=== PATIENT | female | born 1960 | race Caucasian/White ===

== ENCOUNTER 2024-02-18 10:04 | Outpatient (REF) | payer OTHER, SELFPAY ==
[2024-02-18 12:30] LABS: MANUAL DIFF FLAG NO
[2024-02-18 12:32] LABS: Basophils Percent Auto 0.5 % (0-2); Eosinophils Absolute Auto 0.1 X10*3/uL (0.0-0.4); Eosinophils Percent Auto 0.8 % (0-4); Hematocrit 34.8 % (37.0-47.0); Hemoglobin 12.3 g/dl (12.0-16.0); Imm Gran Abs Auto 0.02 X10*3/uL (0.00-0.03); Imm Gran Pct Auto 0.3 % (0.0-0.4); Lymphocytes Absolute Auto 2.1 X10*3/uL (1.2-4.9); Lymphocytes Percent Auto 33.5 % (20-40); Mean Corpuscular HGB Conc 35.3 g/dl (31.0-35.0); Mean Corpuscular Hemoglobin 32.5 pg (27.0-33.0); Mean Corpuscular Volume 91.8 fL (80.0-98.0); Mean Platelet Volume 9.1 fL (9.4-12.3); Monocytes Absolute Auto 0.5 X10*3/uL (0.1-1.2); Monocytes Percent Auto 7.4 % (2-11); Neutrophils Absolute Auto 3.7 x10*3/uL (2.0-8.3); Neutrophils Percent Auto 57.5 % (45-73); Platelet Count 248 X10*3/uL (160-400); Red Blood Count 3.79 X10*6/uL (4.20-5.50); Red Cell Distribution Width 13.9 % (11.0-16.0); White Blood Count 6.4 X10*3/uL (4.8-10.8)
[2024-02-18 12:52] LABS: Estimated Average Glucose 103 mg/dL; Hemoglobin A1c % 5.2 % (<6.0)
[2024-02-18 13:06] LABS: Erythrocyte Sedimentation Rate 8 MM/HR (0-20)
[2024-02-18 13:26] LABS: Alanine Aminotransferase 21 U/L (0-31); Albumin Level 4.4 g/dL (3.5-5.0); Alkaline Phosphatase 59 U/L (39-117); Anion Gap 13 (12-20); Aspartate Amino Transferase 21 U/L (5-31); Bilirubin Total 0.5 mg/dL (0.0-1.0); Blood Urea Nitrogen 16 mg/dL (9-16); Calcium 9.9 mg/dL (8.4-10.2); Carbon Dioxide 24 mmol/L (22-29); Chloride 108 mmol/L (96-108); Estimated Glomerular Filt Rate > 60; Glucose Random 90 mg/dL (60-115); Magnesium 2.1 mg/dL (1.6-2.6); Potassium 3.8 mmol/L (3.3-5.1); Sodium 141 mmol/L (135-145); Total Protein 7.1 g/dL (6.5-8.0)
[2024-02-18 13:27] LABS: Rheumatoid Factor < 13.0 IU/mL (<15.0)
[2024-02-18 13:42] LABS: Ferritin 123 ng/mL (10-250); TSH reflex Free T4 1.48 uIU/mL (0.32-4.0)
[2024-02-18 14:03] LABS: Folate > 20.0 ng/mL (> or = 4.0); Vitamin B12 953 pg/mL (200-900)
[2024-02-19 11:04] LABS: CRP High Sensitivity 1.2 mg/L; Ceruloplasmin 32 mg/dL (14-48)
[2024-02-19 16:53] LABS: Homocysteine 8.4 umol/L (<10.4)
[2024-02-22 13:24] LABS: Nicotinamide <20 ng/mL (see note); Vit B3 - Nicotinic Acid <20 ng/mL (see note)
[2024-02-23 00:24] LABS: Zinc 56 mcg/dL (60-130)
[2024-02-23 12:59] LABS: Methylmalonic Acid 99 nmol/L (69-390)
[2024-02-23 13:43] LABS: Vitamin D 25-OH, D2 14 ng/mL; Vitamin D 25-OH, D3 25 ng/mL; Vitamin D 25-OH, Total 39 ng/mL (30-100)
[2024-02-23 14:44] LABS: Vitamin B6 26.4 ng/mL (2.1-21.7)
[2024-02-23 18:39] LABS: Vitamin A 71 mcg/dL (38-98)
[2024-02-23 18:43] LABS: Alpha-Tocopherol 16.1 mg/L (5.7-19.9); Beta-Gamma Tocopherol 1.1 mg/L (<=4.3)
[2024-02-24 12:28] LABS: Vitamin C 0.6 mg/dL (0.3-2.7)
[2024-02-24 20:48] LABS: Vitamin K1 322 pg/mL (130-1500)
[2024-02-25 11:33] LABS: Vitamin B1 8 nmol/L (8-30)
[2024-02-26 14:44] LABS: Vitamin B5 (Pantothenic Acid) 114 ng/mL (<275)
[2024-02-29 15:23] LABS: Anti Nuclear Antibody Screen POSITIVE (NEGATIVE)
[2024-02-29 15:28] LABS: Anti Nuclear Antibody Pattern Nuclear, Speckled
== END 2024-02-18 10:05 | disposition home or self-care (01) ==
LOC: HO.LAB 10:04
PROVIDERS: PCP Nurse Practitioner Family; Visit Provider Nurse Practitioner Family
DX: D64.9 Anemia, unspecified (principal); E55.9 Vitamin D deficiency, unspecified; R25.2 Cramp and spasm; R53.83 Other fatigue; M54.2 Cervicalgia; R20.2 Paresthesia of skin; R20.0 Anesthesia of skin; G43.909 Migraine, unspecified, not intractable, without status migrainosus
CPT/HCPCS: 36415; 80053; 82180; 82306; 82390; 82550; 82607; 82728; 82746; 83036; 83090; 83735; 83921; 84207; 84425; 84443; 84446; 84590; 84591; 84597; 84630; 85025; 85652; 86038; 86039; 86141; 86431

== ENCOUNTER 2024-02-18 10:04 | Outpatient (AMB) | payer OTHER, SELFPAY ==
--- NOTE | 2024-02-18 10:07 | MHC.OFFVIS ---
Vital Signs 02/18/24 10:08 Height 5 ft 1 in Weight 122 lb 6 oz BMI 23.1 BP 110/80 Blood Pressure Location Rt brachial Position Sitting Respiration 16 Pulse 77 Pulse Source Pulse Oximeter Pulse Oximetry (%) 98 Oxygen Delivery Method Room Air Intake Visit Reasons: ENP-Headaches/Migraines-CONF Intake Note: Pt presents for new pt evaluation for migraines. [employer] Required: No Allergies Sulfa (Sulfonamide Antibiotics) Allergy (Severe, Verified 02/18/24 10:07) Swelling sulfamethizole Allergy (Severe, Verified 02/18/24 10:07) Angioedema iron Allergy (Unknown, Verified 02/18/24 10:07) Unknown nitrofurantoin [From Macrobid] Allergy (Unknown, Verified 02/18/24 10:07) Unknown Medication List - Last Reconciled 02/18/24 by COLUMBA Bunn magnesium oxide 400 mg PO BEDTIME 30 days riboflavin (vitamin B2) 400 mg PO DAILY 30 days HPI Comments Details: 63-yr-old female presents for new pt evaluation of headache and LLE numbness/paresthesias. She is most concerned w/ he rLLE s/s. Pt previously was seen by Dr Lozano for headaches- at our previous office- [facility] Pt reports she is prone to headache and migraine. Last January, she woke up one day with severe right sided migraine. The headache lasted 2 days. When the migraine ended, she felt developed left side numbness from head to toe) which lasted until the end of the day, but the LLE knee through feet numbness persisted. She states since this episode, she may have intermittent left mouth or LUE numbness/tingling. However, she is most concerned with the constant left lower leg symptoms- constant pins and needles, when worse it feels like pins and needles, squeezing calf, numbness, and heaviness sensation. When the LLE symptoms are worse, it feels like it travels up the left side of her body and her leg and whole body feels weak. When she has a stabbing right frontal pain, it can trigger entire left sided numbness and tingling. Laying down does not help. She can feel the ground when she is walking. Since last January, She had brain MRI- states normal. MRI lumbar- showed a bulged disc, and was referred to [facility]. At [facility], states she had a LUE EMG/NCS in November 2023- states normal. 06/2024, Brain MRI w/o, IMPRESSION: Minimal nonspecific white matter T2 hyperintensities probably sequela of chronic microangiopathy. No acute/subacute infarct, hemorrhage, or other acute intracranial abnormality. 06/2024, Lumbar MRI, IMPRESSION: Mild degenerative changes of the lumbar spine as described without high-grade spinal canal or foraminal stenosis. PMH and ROS are notable for: Anemia ?Arthritis.? Joint pain, neck pain, back pain. ??Blurry vision, dryness, eye pain ?Depression ? And anxiety. ?GERD. ? Sore throat.? Sinus problems.? Hoarseness. ?Fatigue.? Previous HST was normal. ?Talks, cries, writes in her sleep. ?Tremor:? times the past 15 years.? Either enhance her whole-body.? With rest or with action. ? Other people notice it. ??Difficulty walking.? Weakness.? Numbness and tingling. ??Dizziness. ??Cramps and foot posturing at rest. Family history of migraine or other headache disorder: brother- migraines. son- had AVM. Headache questionnaire:? Typical headache characteristics: Prodrome symptoms: Back of eyes will hurt or right sided stabbing pain. Aura: May see floaters- w/wo headaches Pain intensity: mild - severe Location, quality, characteristics: Usually bilateral R > L retroorbital, right frontal, temporal headache pressure. Associated symptoms: photophobia- she is overall more photophobic, osmophobia- noticing this more, allodynia, nausea, when severe, vomiting, not right in space dizziness- floating/or like she is on a boat but not, lightheadedness, activity intolerance, swollen/red eyes. In the past, she had a severe migraine w/ Left facial droop and tingling which lasted 3 weeks. Postdrome: none Triggers: No known triggers Time of day: In the middle of the night or wakes up with the headache. But can have headaches anytime. Duration and Frequency: In the past month, has had 2 headache days per week. How does headache impact your life? Tries not to miss work. Cannot work or do daily activities during severe migraine. Family history of migraine or other headache disorder: brother- migraines. son- had AVM. Current acute medication use/interventions: Sumatriptan 100mg- causes her to vomit after her 1st dose, may need to repeat dose. Can take 3 hrs or more to work. Ibuprofen or Tylenol. Current preventative medication use: None Non-pharmacological interventions: Rest PFSH Surgical History H/O tubal ligation Hx of appendectomy H/O bilateral salpingo-oophorectomy Family History Mother Breast CA Social History Alcohol intake: current Patient Tobacco Use Status: Former Tobacco user Substance Use Type: Marijuana Physical Exam Vital Signs: Last Vital Signs Pulse 77 02/18/24 10:08 Resp 16 02/18/24 10:08 BP 110/80 02/18/24 10:08 Pulse Ox 98 02/18/24 10:08 Oxygen Delivery Method Room Air 02/18/24 10:08 BMI result Body Mass Index 23.1 Const Orientation/consciousness: patient oriented x3 Resp Effort & Inspection: normal respiratory effort and able to speak in complete sentences Neuro Other: No palpable scalp tenderness. Bilateral eye flutter w/ eyes closed. Bilateral posterior cervical tightness. Cervical ROM: full Left Spurling: elicits non-radiating tenderness in left paraspinal muscles Right Spurling: normal. BLE MS 5/5, light touch and vibration sensation intact, sharp sensation- hyperesthesia. General: patient oriented x3 Cranial nerves: Yes CN's II-XII intact bilaterally Cognition (Neuro): normal cognition Gait exam (Neuro): Normal gait present Motor exam (neuro): 5/5 motor strength present throughout Deep tendon reflexes (DTR's): Right triceps reflex intensity grade: 2+, Left triceps reflex intensity grade: 2+, Rt Biceps (C5, C6): 2+, Left biceps reflex intensity grade: 2+, Right brachioradialis reflex intensity grade: 2+, Left brachioradialis reflex intensity grade: 2+, Right patellar reflex intensity grade: 2+ and Left patellar reflex intensity grade: 2+ Coordination: [id number] test normal Pupils: Normal pupillary reactivity/response: bilateral Psych Appearance: grossly normal Mental Status: mental status grossly normal Speech and movement: Normal speech and movement present Affect: normal affect Attitude: cooperative Thought process: Normal thought process present Results Reviewed Results Reviewed: 06/25/2024, MRI Lumbar Spine W/O Contrast [facility] VISIT NUMBER :[id number] Patient Name: Carmita Muñiz Date of : 1960 Date of Exam: 06-25-2023 Referring Physician: Florencia Whitney [facility] and [place] [id number] Exam: MR Lumbar Spine (C-) CPT 86092 Room Description: [facility] 3T INDICATION: Patient experienced a headache in January and this was followed by cramping/tightness and weakness on the left side of patient's body. History of migraines. TECHNIQUE: Multiplanar multisequence MRI of the lumbar spine was performed without IV contrast. COMPARISON: No prior FINDINGS: There is minimal dextrocurvature of the lumbar spine centered at L3. Minimal retrolisthesis of L2 on L3 and minimal anterolisthesis of L4 on L5 is noted. The lumbar spine alignment is otherwise preserved. The vertebral body heights are preserved. The bone marrow signal is unremarkable. The conus terminates at L1 and has normal signal and configuration. The paraspinal soft tissues are unremarkable. There is a well-circumscribed T2 hyperintense lesion in the visualized right hepatic lobe measuring 7 x 8 mm probably a benign cysts. The retroperitoneal soft tissues are unremarkable. At T12-L1, there is no spinal canal or foraminal stenosis. The disc is normal. At L1-L2, there is no spinal canal or foraminal stenosis. The disc is normal. At L2-L3, there is a mild disc bulge and ligamentum flavum thickening resulting in mild right and no significant left foraminal stenosis. There is no canal stenosis. At L3-L4, there is a minimal disc bulge resulting in mild left and no significant right foraminal stenosis. There is no canal stenosis. At L4-L5, there is a mild disc bulge, posterior endplate spurs, facet joint arthropathy, and ligamentum flavum thickening resulting in mild right and no significant left foraminal stenosis. There is no canal stenosis. At L5-S1, there is a mild disc bulge with a superimposed left paracentral disc protrusion deforming the ventral thecal sac in crowding the left subarticular zone. There is mild facet joint arthropathy. There is no significant canal or foraminal stenosis. Incidentally noted, there is a perineural cyst in the left S1-S2 foramen. IMPRESSION: Mild degenerative changes of the lumbar spine as described without high-grade spinal canal or foraminal stenosis 06/25/23, MRI Brain W/O Contrast [facility] VISIT NUMBER :[id number] Patient Name: Carmita Muñiz Date of : 1960 Date of Exam: 06-25-2023 Referring Physician: Florencia Whitney [facility] and [place] [id number] Exam: MR Brain (C-) CPT 08328 Room Description: [facility] 3T INDICATION: Patient experienced a headache in January and this was followed by cramping/tightness and weakness on the left side of patient's body. History of migraines. TECHNIQUE: Multiplanar multisequence MRI of the brain was performed without IV contrast. COMPARISON: No prior FINDINGS: There are minimal T2 hyperintensities in the periventricular and subcortical white matter which are nonspecific. The ventricles and sulci are normal. The midline the structures, main vascular flow voids, and basal cisterns are normal. There is no acute/subacute infarct or hemorrhage. The orbits are normal. The paranasal sinuses and mastoid air cells are clear. The extracranial soft tissues, calvarium, and skull base are normal. IMPRESSION: Minimal nonspecific white matter T2 hyperintensities probably sequela of chronic microangiopathy. No acute/subacute infarct, hemorrhage, or other acute intracranial abnormality. Assessment & Plan Assessment & Plan (1) Cervicalgia: Code(s): M54.2 - Cervicalgia Category: Medical (2) Left leg paresthesias: Code(s): R20.2 - Paresthesia of skin Category: Medical (3) Left facial numbness: Code(s): R20.0 - Anesthesia of skin Category: Medical (4) Migraine: Code(s): G43.909 - Migraine, unspecified, not intractable, without status migrainosus Category: Medical Plan For chronic distal LLE paresthesias- which do not have a pattern typical for migraine w/ sensory aura, as pt reports 2 right-sided migraine/headache days per week but constant LLE paresthesias (however pt may be underestimating the frequency of headache/migraine). Pt also has migraine headache, worsening photophobia, increased osmophobia, LLE heaviness, cramping, tremor, parasomnias; pt advised to undergo: Brain MRI w/wo to assess for underlying secondary central etiologies, such as infectious, inflammatory processes. C-spine MRI to assess for underlying secondary central etiologies, such as infectious, inflammatory process Labs to assess for underlying secondary etiologies, such as infectious or inflammatory processes, or nutritional deficiencies. For overall headache management: Optimize good self-care, including but not limited to maintaining a healthy diet, adequate fluid intake, adequate sleep, and engaging in regular physical activity. Track headaches. For acute headache treatment: Discussed importance of taking acute medications at the first sign of headache. Try taking Sumatriptan 100mg, 1/2 tab at 1st sign of migraine to assess tolerance. If still provokes nausea, will trial alternate triptan. May continue Tylenol or Ibuprofen prn for milder headaches. Previous acute migraine medication trials: None Acute migraine medication contraindications: None at this time For headache prevention medication: Preventative medications should be taken routinely as prescribed for best effect, it may take several weeks for full effect to take effect. Start Riboflavin 400mg qam Start Magnesium 400mg qhs- may help cramps as well. Previous migraine prevention medication trials: None Migraine prevention medication contraindications: None at this time Will follow-up upon review of above. Pt to follow-up in clinic in 3-6 months or sooner prn. Orders: Orders Vitamin D 25-OH (D2 and D3) Today D64.9 - Anemia, unspecified, E55.9 - Vitamin D deficiency, unspecified, R25.2 - Cramp and spasm, R53.83 - Other fatigue Homocysteine Today D64.9 - Anemia, unspecified, E55.9 - Vitamin D deficiency, unspecified, R25.2 - Cramp and spasm, R53.83 - Other fatigue Methylmalonic Acid Today D64.9 - Anemia, unspecified, E55.9 - Vitamin D deficiency, unspecified, R25.2 - Cramp and spasm, R53.83 - Other fatigue Complete Blood Count Auto Diff Today D64.9 - Anemia, unspecified, E55.9 - Vitamin D deficiency, unspecified, R25.2 - Cramp and spasm, R53.83 - Other fatigue Comprehensive Met. Panel Today D64.9 - Anemia, unspecified, E55.9 - Vitamin D deficiency, unspecified, R25.2 - Cramp and spasm, R53.83 - Other fatigue CRP High Sensitivity Today D64.9 - Anemia, unspecified, E55.9 - Vitamin D deficiency, unspecified, R25.2 - Cramp and spasm, R53.83 - Other fatigue LINDA Reflex Titer and Pattern Today D64.9 - Anemia, unspecified, E55.9 - Vitamin D deficiency, unspecified, R25.2 - Cramp and spasm, R53.83 - Other fatigue Hemoglobin A1c Today D64.9 - Anemia, unspecified, E55.9 - Vitamin D deficiency, unspecified, R25.2 - Cramp and spasm, R53.83 - Other fatigue Magnesium Today D64.9 - Anemia, unspecified, E55.9 - Vitamin D deficiency, unspecified, R25.2 - Cramp and spasm, R53.83 - Other fatigue Vitamin B1 Today D64.9 - Anemia, unspecified, E55.9 - Vitamin D deficiency, unspecified, R25.2 - Cramp and spasm, R53.83 - Other fatigue Vitamin B3 (Niacin) Today D64.9 - Anemia, unspecified, E55.9 - Vitamin D deficiency, unspecified, R25.2 - Cramp and spasm, R53.83 - Other fatigue Vitamin B6 Today D64.9 - Anemia, unspecified, E55.9 - Vitamin D deficiency, unspecified, R25.2 - Cramp and spasm, R53.83 - Other fatigue Vitamin E Today D64.9 - Anemia, unspecified, E55.9 - Vitamin D deficiency, unspecified, R25.2 - Cramp and spasm, R53.83 - Other fatigue Vitamin K1 Today D64.9 - Anemia, unspecified, E55.9 - Vitamin D deficiency, unspecified, R25.2 - Cramp and spasm, R53.83 - Other fatigue MR cervical spine wo/w con Today G43.909 - Migraine, unspecified, not intractable, without status migrainosus, R20.0 - Anesthesia of skin, R20.2 - Paresthesia of skin, R25.1 - Tremor, unspecified MR head/brain wo/w con Today G43.909 - Migraine, unspecified, not intractable, without status migrainosus, M54.2 - Cervicalgia, R20.0 - Anesthesia of skin, R20.2 - Paresthesia of skin TSH reflex Free T4 Today D64.9 - Anemia, unspecified, E55.9 - Vitamin D deficiency, unspecified, R25.2 - Cramp and spasm, R53.83 - Other fatigue Vitamin B12 and Folate Today D64.9 - Anemia, unspecified, E55.9 - Vitamin D deficiency, unspecified, R25.2 - Cramp and spasm, R53.83 - Other fatigue Ferritin Today D64.9 - Anemia, unspecified, E55.9 - Vitamin D deficiency, unspecified, R25.2 - Cramp and spasm, R53.83 - Other fatigue Creatine Kinase Total Today D64.9 - Anemia, unspecified, E55.9 - Vitamin D deficiency, unspecified, R25.2 - Cramp and spasm, R53.83 - Other fatigue Erythrocyte Sedimentation Rate Today D64.9 - Anemia, unspecified, E55.9 - Vitamin D deficiency, unspecified, R25.2 - Cramp and spasm, R53.83 - Other fatigue Rheumatoid Factor Today D64.9 - Anemia, unspecified, E55.9 - Vitamin D deficiency, unspecified, R25.2 - Cramp and spasm, R53.83 - Other fatigue Vitamin A Today D64.9 - Anemia, unspecified, E55.9 - Vitamin D deficiency, unspecified, R25.2 - Cramp and spasm, R53.83 - Other fatigue Vitamin B5 (Pantothenic Acid) Today D64.9 - Anemia, unspecified, E55.9 - Vitamin D deficiency, unspecified, R25.2 - Cramp and spasm, R53.83 - Other fatigue Vitamin C Today D64.9 - Anemia, unspecified, E55.9 - Vitamin D deficiency, unspecified, R25.2 - Cramp and spasm, R53.83 - Other fatigue Zinc Today D64.9 - Anemia, unspecified, E55.9 - Vitamin D deficiency, unspecified, R25.2 - Cramp and spasm, R53.83 - Other fatigue Ceruloplasmin Today D64.9 - Anemia, unspecified, E55.9 - Vitamin D deficiency, unspecified, R25.2 - Cramp and spasm, R53.83 - Other fatigue Medications: New magnesium oxide may hold for loose stools 400 mg PO BEDTIME 30 tabs 6RF 30 days riboflavin (vitamin B2) 400 mg PO DAILY 30 tabs 6RF 30 days Coding Level of Care Code New Pt Level 4 (76150) Diagnoses Cervicalgia M54.2 Left leg paresthesias R20.2 Left facial numbness R20.0 Migraine G43.909
[2024-02-18 10:08] VITALS: BP 110/80; PULSE 77; RESP 16; O2SAT 98; BMI 23.1
== END 2024-02-18 11:30 | disposition home or self-care (01) ==
PROVIDERS: PCP Nurse Practitioner Family; Visit Provider Nurse Practitioner Family
DX: M54.2 Cervicalgia (principal); R20.2 Paresthesia of skin; R20.0 Anesthesia of skin; G43.909 Migraine, unspecified, not intractable, without status migrainosus
CPT/HCPCS: 99204

== ENCOUNTER 2024-06-23 14:28 | Outpatient (AMB) | payer OTHER, SELFPAY ==
[2024-06-23 15:03] VITALS: BP 100/58; PULSE 84; O2SAT 98; BMI 25.5
--- NOTE | 2024-06-23 15:03 | MHC.OFFVIS ---
Vital Signs 06/23/24 15:03 Height 5 ft 1 in Weight 134 lb 14.766 oz BMI 25.5 BP 100/58 L Blood Pressure Location Lt brachial Position Sitting Pulse 84 Pulse Source Pulse Oximeter Pulse Oximetry (%) 98 Oxygen Delivery Method Room Air Intake Visit Reasons: + LINDA/CM Intake Note: Patient is here as a new patient internally referred by Neurology for +LINDA. Allergies Sulfa (Sulfonamide Antibiotics) Allergy (Severe, Verified 06/23/24 15:06) Swelling sulfamethizole Allergy (Severe, Verified 06/23/24 15:06) Angioedema iron Allergy (Unknown, Verified 06/23/24 15:06) Unknown nitrofurantoin [From Macrobid] Allergy (Unknown, Verified 06/23/24 15:06) Unknown Medication List - Last Reconciled 06/23/24 by Leia Fuller MD magnesium oxide 400 mg PO BEDTIME 30 days riboflavin (vitamin B2) 400 mg PO DAILY 30 days zinc sulfate 50 mg PO DAILY 30 days HPI Comments Details: This is a 63-year-old female who presents for evaluation of positive LINDA. This was ordered by Neurology in the context of migraines. She states that she was evaluated by Dr. Stiles at the [facility] years ago and was told she has fibromyalgia. She states that she has had fibromyalgia for many years. She continues to have widespread pains. She states that she generally has a good attitude about it and remains active. She denies any history of DVT/PE. She had 2 pregnancies, 2 children, no abortions or miscarriages. [facility] Medical History (Updated 06/23/24 @ 15:49 by Leia Fuller MD) Depression Anxiety Bipolar 1 disorder Surgical History H/O tubal ligation Hx of appendectomy H/O bilateral salpingo-oophorectomy Family History Mother Breast CA Social History Alcohol intake: current Patient Tobacco Use Status: Former Tobacco user Substance Use Type: Marijuana Review of Systems Const Reports fatigue, Reports headache(s) and Reports weakness Eyes Reports dry eyes ENT Reports dysphagia, Reports dizziness, Reports headache(s) and Reports hoarseness Card Reports chest pain and Reports dyspnea Resp Reports cough, Reports dyspnea and Reports wheezing GI Reports dysphagia and Reports nausea Reports hematuria Musc Reports myalgias, Reports arthralgias and Reports joint swelling Skin/Breast Reports alopecia and Reports unusual bruising Neuro Reports dizziness, Reports headache(s), Reports memory loss and Reports weakness Psych Reports abnormal sleep pattern, Reports anxiety, Reports depression and Reports memory loss Endo Reports fatigue Aller/Immun Reports wheezing Physical Exam Vital Signs: Last Vital Signs Pulse 84 06/23/24 15:03 BP 100/58 L 06/23/24 15:03 Pulse Ox 98 06/23/24 15:03 Oxygen Delivery Method Room Air 06/23/24 15:03 BMI result Body Mass Index 25.5 Const General: cooperative, healthy appearing and comfortable Nutritional Appearance: average body habitus Orientation/consciousness: patient oriented x3 Limitations: no limitations HEENT Head: Yes normocephalic and Yes atraumatic Mouth: moist mucous membranes Resp Effort & Inspection: normal respiratory effort and able to speak in complete sentences Auscultation: clear to auscultation bilaterally Skin General skin exam: no rashes or lesions noted Neuro General: patient oriented x3 Extrem Other: Minimal osteoarthritic changes of both hands with no active synovitis Normal nailfold capillaroscopy Multiple fibromyalgia tender points Assessment & Plan Assessment & Plan (1) Positive LINDA (antinuclear antibody): Code(s): R76.8 - Other specified abnormal immunological findings in serum Category: Medical Plan: This is a 63-year-old female with history of fibromyalgia who presents for evaluation of a positive LINDA. This was ordered by Neurology in the context of migraines. Upon evaluation I do not see any signs suggestive of an autoimmune rheumatic disease. Discussed with patient that about 20% of the population may have a positive LINDA without underlying autoimmune rheumatic disease (2) Fibromyalgia, primary: Code(s): M79.7 - Fibromyalgia Category: Medical Plan: Discussed management of fibromyalgia with patient. Is a noninflammatory, non-autoimmune central afferent processing disorder leading to a diffuse pain syndrome. Patient has history of bipolar disorder as well as anxiety and depression. She used to follow-up regularly with psychotherapist and psychiatrist. She stated that both practitioners left advised patient to try and establish care with a new therapist and is new psychiatrist. Patient has had a sleep study about 15 years ago. It did not show sleep apnea. Advised patient to request a referral for a sleep study by her PCP to rule out ARIE. Patient is generally quite active. She walks most days. 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 Patient would benefit from increased physical activity, either through formal physical therapy or by joining a gym. Advised patient that she should start activity slowly and increase as tolerated. Consider low-impact exercises such as light weights, swimming, aqua therapy stretching, yoga. She took Cymbalta in the past. Did not help much. Follow-up PCP Plan I spent 30 minutes reviewing patient's chart, evaluating patient,counseling patient and documenting in the chart Coding Level of Care Code New Pt Level 3 (81180) Diagnoses Positive LINDA (antinuclear antibody) R76.8 Fibromyalgia, primary M79.7
== END 2024-06-23 15:46 | disposition home or self-care (01) ==
LOC: HO.RHE 14:29
PROVIDERS: PCP Nurse Practitioner Family; Visit Provider Student in an Organized Health Care Education/Training Program
DX: R76.8 Other specified abnormal immunological findings in serum (principal); M79.7 Fibromyalgia
CPT/HCPCS: 99203

== ENCOUNTER → 2024-06-23 14:28 | Outpatient (BNVA) | payer OTHER, SELFPAY | PROVIDERS: PCP Nurse Practitioner Family; Visit Provider Student in an Organized Health Care Education/Training Program ==

== ENCOUNTER 2024-09-19 15:09 | Outpatient (AMB) | payer OTHER, SELFPAY ==
[2024-09-19 15:20] VITALS: BP 114/74; PULSE 79; O2SAT 96; BMI 22.9
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
== END 2024-09-19 16:25 | disposition home or self-care (01) ==
PROVIDERS: PCP Nurse Practitioner Family; Visit Provider Nurse Practitioner Family
DX: R20.2 Paresthesia of skin (principal); R20.0 Anesthesia of skin; R29.6 Repeated falls; G43.909 Migraine, unspecified, not intractable, without status migrainosus
CPT/HCPCS: 99214

== ENCOUNTER 2024-10-04 08:27 | Outpatient (REF) | payer OTHER, SELFPAY ==
--- NOTE | ~2024-10-04 | US_ITS ---
EXAMINATION: US TRIPLEX LOWER EXTREMITY, LEFT CLINICAL INFORMATION: Pain in left lower extremity. COMPARISON: None available. TECHNIQUE: Color-flow triplex imaging with spectral analysis and compression Doppler were performed on the left lower extremity. FINDINGS: Respiratory variation, normal compression and augmented flow are noted throughout the left lower extremity. The visualized common femoral vein, superficial femoral vein, profunda femoral vein, popliteal vein and midcalf peroneal and posterior tibial venous segments show no evidence of deep venous thrombosis. There is no Lee's cyst. US/US venous duplex LE LT IMPRESSION: No evidence of deep venous thrombosis involving the left lower extremity. Electronically signed by: Jonathan He MD 10/04/2024 09:11 AM SUJATA
--- NOTE | ~2024-10-04 | XR_ITS ---
CLINICAL HISTORY: R29.6 - Repeated falls 3 views left knee Comparison: None Findings: There is no fracture or dislocation. Joint spaces appear normal. There is no effusion. There is an incidental small patellar enthesophyte at the insertion of the quadriceps tendon. Impression: No acute findings. This document has been electronically signed by: Pb Sheridan MD on 10/05/2024 03:48:43
--- NOTE | ~2024-10-04 | XR_ITS ---
CLINICAL HISTORY: R29.6 - Repeated falls 4 view bilateral hips Comparison: None Findings: There is no fracture or dislocation. Joint spaces appear normal. There are pelvic phleboliths. IMPRESSION: No acute findings. This document has been electronically signed by: Pb Sheridan MD on 10/05/2024 03:52:14
== END 2024-10-04 08:28 | disposition home or self-care (01) ==
LOC: HO.US 08:27
PROVIDERS: PCP Nurse Practitioner Family; Visit Provider Nurse Practitioner Family
DX: R29.6 Repeated falls (principal); R20.2 Paresthesia of skin; M79.605 Pain in left leg
CPT/HCPCS: 73522; 73562; 93971

== ENCOUNTER → 2024-10-04 08:29 | Outpatient (BNV) | payer OTHER, SELFPAY | PROVIDERS: PCP Nurse Practitioner Family; Visit Provider Radiology Diagnostic Radiology | DX: M79.662 Pain in left lower leg (principal) | CPT/HCPCS: 93971 ==

== ENCOUNTER 2025-04-04 15:24 | Outpatient (AMB) | payer OTHER, SELFPAY ==
[2025-04-04 15:27] VITALS: BP 116/82; PULSE 88; O2SAT 98; BMI 22.7
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
== END 2025-04-04 16:25 | disposition home or self-care (01) ==
LOC: HO.HSMS 15:25
PROVIDERS: PCP Nurse Practitioner Family; Visit Provider Nurse Practitioner Family
DX: R20.2 Paresthesia of skin (principal); R25.2 Cramp and spasm; G43.009 Migraine without aura, not intractable, without status migrainosus; E60 Dietary zinc deficiency; M79.605 Pain in left leg
CPT/HCPCS: 99214

== ENCOUNTER 2025-05-23 14:31 | Outpatient (REF) | payer OTHER, SELFPAY ==
--- NOTE | ~2025-05-23 | US_ITS ---
CLINICAL HISTORY: M79.605 - Pain in left leg Arterial duplex ultrasound bilateral lower extremity Comparison: None provided Findings: Continuous pulsatile flow of the bilateral common femoral through posterior tibial and dorsalis pedis arteries, the bilateral femoral artery mid to distal segment and runoff vessels, left proximal profunda femoris demonstrate biphasic waveform, other arteries demonstrate triphasic waveform. No focal hemodynamically significant stenosis, aneurysm or occlusion. Velocities are within normal range. IMPRESSION: No hemodynamically significant stenoses on bilateral lower extremity arterial duplex. This document has been electronically signed by: Christine Corado MD on 05/24/2025 15:00:20
--- OUTSIDE RECORDS SUMMARY | 2025-05-23 15:56 | XMS_ITS | Clinical Summary ---
Author Organization [facility] Address [address] [address] Phone Care Team Providers [employer] Name Role Phone Koby Regalado MD Primary Care Provider Allergies Active Allergy Reactions Criticality Noted Date Comments Nitrofurantoin Monohyd/M-Cryst Swelling 04/03 Sulfa (Sulfonamide Antibiotics) Swelling 03/24 Medications omeprazole (PRILOSEC) 20 mg TbEC Take 20 mg by mouth daily before breakfast. Active DULoxetine (CYMBALTA) 20 MG capsule Take 20 mg by mouth daily. Active Family History Medical History Relation Comments Diabetes Father Relation Status Comments Father Social History Tobacco Use Types Packs/Day Years Used Date Smoking Tobacco: Never Smokeless Tobacco: Never Alcohol Use Standard Drinks/Week Comments Yes 0 (1 standard drink = 0.6 oz pur e alcohol) Education Answer Date Recorded Are you interested in more education? Not on sandra e 12/19/2022 Are you concerned about learning? Not on file 12/19/2022 No 12/19/2022 No 12/19/2022 Digital Access Answer Date Recorded No 01/20/2023 No 01/20/2023 Reliable internet access at home? Not on file 01/20/2023 Device with a working camera? 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 Not on file N ot on file Last Filed Vital Signs Vital Sign Reading Time Taken Comments Blood Pressure 98/60 04/03/2020 3:42 PM EDT Pulse - - Temperature - - Respiratory Rate - - Oxygen Saturation - - Inhaled Oxygen Concentration - - Weight 58.1 kg (128 lb) 04/03/2020 3:42 PM EDT Height 153.7 cm (5' 0.5 ) 04/03/2020 3:42 PM EDT Body Mass Index 24.59 04/03/2020 3:42 PM EDT Plan of Treatment Health Maintenance Due Date Last Done Comments Adult Td,Tdap Booster 1961 LIPID PANEL 1961 DEPRESSION SCREENING 1973 HEPATITIS C SCREENING 12/09/1979 HIV ONE-TIME SCREENING (18-6 5 YEARS) 12/09/1979 MAMMOGRAM 2001 COLOGUARD 2006 COLONOSCOPY 2006 COLORECTAL CANCER SCREENING 2006 FIT TEST 2006 FOBT 2006 SIGMOIDOSCOPY 2006 VIRTUAL COLONOSCOPY 2006 PNEUMOCOCCAL VACCINES (50+ y ears) (1 of 1 - PCV) 12/09/2011 ZOSTER VACCINES (1 of 2) 12/09/2011 PAP SMEAR 01/29/2020 01/28/2017 INFLUENZA VACCINE (#1) 2025 COVID-19 VACCINE (2 - 2024-2 6 season) 2025 11/14/2020 RSV VACCINE (1 - 1-dose 75+ series) 2036 SMOKING STATUS SCREENING (On ce After 26 Yrs) Completed 04/03/2020 HEPATITIS A VACCINES Aged Out No long er eligible based on patient's age to complete this topic HIB VACCINES Aged Out No longer eligi ble based on patient's age to complete this topic MENINGOCOCCAL VACCINES (ACWY) Aged Out No longer eligible based on patient's age to complete this topic MENINGOCOCCAL VACCINES (B) Aged Out N o longer eligible based on patient's age to complete this topic Medical Devices Not on file Procedures Procedure Name Priority Date/Time Associated Diagnosis Comments HM PAP SMEAR FOR RESULT ENTRY ONLY Routine 01/28/2017 from Last 3 Months or Most Recently Relevant to Health Maintenance Results * HM PAP SMEAR FOR RESULT ENTRY ONLY (01/28/2017) us Pat Freliech Moskovitz MD HEALTH MAINTENANCE F inal Result from Last 3 Months or Most Recently Relevant to Health Maintenance Insurance CHOICE CHOICE CHOICE CHOICE CHOICE CHOICE CHOICE CHOICE Care Teams [employer] Teacher Relationship Specialty Start Date End Date Koby Regalado MD PCP - General Internal Medicine 10/11/19 Additional Source Comments The information contained in this document represents components of the legal health record. It is not the complete legal health record.[facility]
== END 2025-05-23 14:32 | disposition home or self-care (01) ==
LOC: HO.US 14:31
PROVIDERS: PCP Nurse Practitioner Family; Visit Provider Nurse Practitioner Family
DX: M79.605 Pain in left leg (principal); R25.2 Cramp and spasm; E60 Dietary zinc deficiency; R20.2 Paresthesia of skin
CPT/HCPCS: 93925

== ENCOUNTER → 2025-05-23 14:32 | Outpatient (BNV) | payer OTHER, SELFPAY | PROVIDERS: PCP Nurse Practitioner Family; Visit Provider Radiology Diagnostic Radiology | DX: M79.662 Pain in left lower leg (principal) | CPT/HCPCS: 93925 ==